=== PATIENT | female | born 1975 | race Caucasian/White ===

== ENCOUNTER 2016-12-02 17:00 | Emergency (ER) | payer BC ==
[~2016-12-02] VITALS: Ht 167.6 cm; Wt 74.8 kg
--- NOTE | 2016-12-02 17:51 | Urgent Treatment Center Report ---
History of Present Issue Date/Time Seen by Provider 12/02/16 1750 Visit Reason Pt arrived:Walked Presenting Problem:PT C/O N/V/D SINCE THIS MORNING Location if Accident: Onset of symptoms date/time:/ or onset unknown for:MEDICAL HX UNKNOWN Have you (or family members/close friends) recently traveled outside the [place]? N If Yes, where/when: Have you had exposure to infectious disease within the past month? TB? Other? Specify: ALLERGIES Uncoded Allergies: INGREDIENT: NO KNOWN - NO KNOWN DRUG ALLERGY (02/06/06) History Medical History General CAD? No Angina: No [place]: No Hypertension? No Hyperlipidemia? No CHF? No DVT? No PE? No COPD? No Asthma? No Anemia? No GERD? No Gastric ulcers? No GI Bleed? No Hernia? No Thyroid Problems? No Hypothyroidism? No CVA? No Seizures? No Diabetes? No Renal Insuffiency? No UTI? Yes Stones? No BPH? No GB Disease: No Nephritic Syndrome? No Asplenia? No Hepatitis? No Sickle Cell Disease? No Arthritis? No Migraines? No Cataracts? No Glaucoma? No MRSA? No HIV? No TB? No Anxiety? No Depression? No Cancer? No More? No Immunization HX DT/Tetanus 5-10 YRS Flu NEVER Pneumonia NEVER Surgical Hx Previous Surgery?Y D & C T AND A Family History Family HX Diabetes No CAD No Hypertension No Hyperlipidemia No Cancer No TB No Social History Smoking Hx Smoker: Current Every Day Smoker Tobacco: Yes Type Cigarettes Alcohol Alcohol: No Review of Systems All Other Systems Reviewed and Negative Gastrointestinal diarrhea, nausea, vomiting Physical Exam Vital Signs Vital Signs Date Time Temp Pulse Resp B/P Pulse O2 O2 Flow FiO2 Ox Delivery Rate 12/02 1734 98.4 81 16 122/61 96 General Appearance normal appearance, WD/WN, no apparent distress, mild distress Respiratory Status Yes: trachea midline, chest symmetrical, non tender chest. No: respiratory distress. Cardiovascular normal exam, regular rate/rhythm, no peripheral edema, no gallop, no JVD, no murmur Gastrointestinal normal bowel sounds, normal exam, non tender, no guarding, no rebound Neurologic alert, test director II-XII nml as tested, normal exam, no motor/sensory deficits, oriented x 3, abnormal cerebellar tests Medical Decision Making LABS/Meds/Orders Pt receiving controlled substance in ED? No Departure Departure Time of Disposition 175 Disposition DC Home or Self Care(routine) Clinical Impression Primary Impression: Viral gastroenteritis Condition STABLE Referrals ARIANNA LAUGHLIN (Family) Patient Instructions Viral Gastroenteritis Additional Instructions Drink plenty of fluids Follow up with family doctor Return if needed [place] diet Discharge Counseling Counseled pt/family regarding diagnosis, test results, medications/RX, home care, follow up needs Prescriptions Current Visit Scripts ONDANSETRON HCL (Zofran 4MG Tab) 4 MG PO Q8HP PRN NAUSEA AND VOMITING #20 TAB at 1400
[2016-12-02] MEDS ORDERED: ZOFRAN4 MG PO (17:58)
[2016-12-02 18:18] VITALS: BP 122/61
== END 2016-12-02 18:20 | disposition home or self-care (01) ==
LOC: UTC 17:00
DX: A08.4 Viral intestinal infection, unspecified (principal)

== ENCOUNTER → 2017-08-20 | Day surgery (SDC) | payer MEDICAID ==
[~2017-08-20] MED LIST: ZOFRAN4 MG PO
--- NOTE | 2017-08-20 09:03 | Operative Note ---
Surgeon/Diagnoses Surgeon/[facility] Manager(s) Date of procedure: 08/20/17 Surgeon: Fernando Higgins Diagnoses Pre-op diagnosis: Suspicious skin lesion RIGHT upper extremity Post-op diagnosis Same Procedure Procedure Procedure: Excision of skin lesion RIGHT upper extremity Indications: ALAINA MUELLER is a 42 year-old Female with a history of skin lesion on the posterior aspect of the RIGHT upper extremity overlying the triceps. It had changed in size and character with some pigmentation. She was concerned. Plan was made for excision. Findings: A raised pigmented lesion Procedure Description: Consent was obtained. Area was prepped and draped. Local anesthetic was infiltrated. Elliptical skin incision was made transversely excising the skin lesion in its entirety. This was sent off as specimen. There was good hemostasis. Skin was closed with interrupted 4-0 nylon. Clean dry sterile dressing was applied. Excisional length was approximately 1.5 cm. EBL (ml): 2 Anesthesia: local Specimens: Skin lesion RIGHT upper extremity Disposition Disposition: Discharged in stable condition at 0903
[2017-08-20 09:17] VITALS: BP 124/80
== END ==
LOC: SDC 08-06 07:30
PROVIDERS: Surgery
PROC: 0HBBXZZ Excision of Right Upper Arm Skin, External Approach (ICD-10-PCS; principal; 2017-08-20 07:30)
DX: D48.5 Neoplasm of uncertain behavior of skin (principal)